=== PATIENT | female | born 1980 | race American Indian/Alaskan Native ===

== ENCOUNTER 2019-03-28 09:34 | Emergency (ER) | payer SELFPAY ==
--- NOTE | 2019-03-28 12:31 | Emergency Department Report ---
ED Chest Pain HPI - General Chief Complaint: Chest Pain Stated Complaint: KNOT ON LEG/CHEST PAIN Time Seen by Provider: 03/28/19 11:59 Source: patient Mode of arrival: Ambulatory Limitations: No Limitations - History of Present Illness Initial Comments: This is a 39-year-old female who presents to ED complaining of left-sided leg pain that radiated up towards to her thighs and also having chest pain. Patient states that she traveled to [place] back to [place] a week ago. Patient states today she noticed the leg pain shortly after returning. Patient's also states that having tingling sensation in her arms and hands fingers. She admits mild chest pain localized to her mid chest region. She denies fall or trauma shortness of breath, headache, - Related Data Previous Rx's Medication Instructions Recorded Last Taken Type Ibuprofen [Motrin 800 MG tab] 800 mg PO TID #30 tablet 03/28/19 Unknown Rx Allergies Allergy/AdvReac Type Severity Reaction Status Date / Time metoclopramide [From Reglan] Allergy Hives Verified 03/27/19 00:18 Heart Score - HEART Score History: Slightly suspicious EKG: Normal Age: < 45 Risk factors: No known risk factors Troponin: < normal limit HEART Score: 0 ED Review of Systems ROS: Stated complaint: KNOT ON LEG/CHEST PAIN Other details as noted in HPI Comment: All other systems reviewed and negative ED Past Medical Hx - Past Medical History Previous Medical History?: Yes Hx GERD: Yes Hx Psychiatric Treatment: Yes (anxiety) Hx Asthma: Yes Additional medical history: Drake's plasey - Surgical History Past Surgical History?: Yes Additional Surgical History: cervix - Social History Smoking Status: Never Smoker Substance Use Type: None - Medications Home Medications: Home Medications Medication Instructions Recorded Confirmed Last Taken Type Ibuprofen [Motrin 800 MG tab] 800 mg PO TID #30 tablet 03/28/19 Unknown Rx ED Physical Exam - General Limitations: No Limitations General appearance: alert, in no apparent distress - Head Head exam: Present: atraumatic, normocephalic - Eye Eye exam: Present: normal appearance Pupils: Present: normal accommodation - ENT ENT exam: Present: mucous membranes moist - Neck Neck exam: Present: normal inspection - Respiratory Respiratory exam: Present: normal lung sounds bilaterally. Absent: respiratory distress, wheezes, chest wall tenderness, accessory muscle use - Cardiovascular Cardiovascular Exam: Present: regular rate, normal rhythm, normal heart sounds. Absent: systolic murmur, diastolic murmur, rubs, gallop - GI/Abdominal GI/Abdominal exam: Present: soft, normal bowel sounds. Absent: distended, tenderness, guarding - Extremities Exam Extremities exam: Present: normal inspection - Back Exam Back exam: Present: normal inspection - Neurological Exam Neurological exam: Present: alert, oriented X3, normal gait - Psychiatric Psychiatric exam: Present: normal affect, normal mood - Skin Skin exam: Present: warm, dry, intact, normal color. Absent: rash ED Course Vital Signs 03/28/19 10:00 Temperature 98.4 F Pulse Rate 83 Respiratory 20 Rate Blood Pressure 136/86 O2 Sat by Pulse 96 Oximetry DANIEL score - Daniel Score Age > 65: (0) No Aspirin use within the Past 7 Days: (0) No 3 or more CAD Risk Factors: (0) No 2 or more Angina events in past 24 hrs: (0) No Known CAD with more than 50% Stenosis: (0) No Elevated Cardiac Markers: (0) No ST Deviation Greater than 0.5mm: (0) No DANIEL Score: 0 ED Medical Decision Making - Lab Data Result diagrams: 03/28/19 12:42 03/28/19 12:42 - Radiology Data Radiology results: report reviewed, image reviewed Fluoro Time In Minutes: ROUTINE CHEST, TWO VIEWS: HISTORY: chest pain. The trachea, heart, mediastinal contour, lung schuster and bony thorax are unremarkable. IMPRESSION: Unremarkable chest x-ray. Transcribed By: TTR Dictated By: RICHY GREY JR, MD Electronically Authenticated By: RICHY GREY JR, MD Signed Date/Time: 03/28/19 4810 - Medical Decision Making 39-year-old female presents with myalgia. Chest x-ray shows no acute process. All labs within normal limits. D-dimer, negative troponin negative Discussed the signs with the patient. Discussed the patient to follow-up with her primary care physician. Patient will be discharged at this time with some pain medication. Vital signs are normal she is in no acute or respiratory distress. Critical care attestation.: If time is entered above; I have spent that time in minutes in the direct care of this critically ill patient, excluding procedure time. ED Disposition Clinical Impression: Myalgia, Costochondritis Disposition: TO HOME OR SELFCARE Is pt being admited?: No Does the pt Need Aspirin: No Condition: Stable Instructions: Musculoskeletal Pain (ED), Trigger Point Pain (ED) Additional Instructions: Make sure to follow up with the primary care physician as discussed. Take all your medications as you've been prescribed. If you have any worsening symptoms or develop new symptoms please return to ED immediately.Discharge Prescriptions: Ibuprofen [Motrin 800 MG tab] 800 mg PO TID #30 tablet Referrals: LISSA METZ MD [Primary Care Provider] - 3-5 Days [facility] [Outside] - 3-5 Days [facility] [Outside] - 3-5 Days Forms: Accompanied Note, Work/School Release Form(ED) Time of Disposition: 15:03
[2019-03-28 12:55] LABS: Eosinophils % (Auto) 0.6 % (0.0-4.3); Hematocrit 36.2 % (30.3-42.9); Hemoglobin 12.2 gm/dl (10.1-14.3); Lymphocytes # (Auto) 1.1 K/mm3 (1.2-5.4); Lymphocytes % (Auto) 37.6 % (13.4-35.0); Mean Corpuscular HGB Conc 34 % (30-34); Mean Corpuscular Volume 90 fl (79-97); Monocytes # (Auto) 0.2 K/mm3 (0.0-0.8); Monocytes % (Auto) 6.9 % (0.0-7.3); Platelet Count 322 K/mm3 (140-440); Red Blood Count 4.01 M/mm3 (3.65-5.03); Red Cell Distribution Width 13.4 % (13.2-15.2)
[2019-03-28 13:17] LABS: BUN/Creatinine Ratio 14; Blood Urea Nitrogen 11 mg/dL (7-17); Calcium 8.8 mg/dL (8.4-10.2); Hemolysis Index 18
--- NOTE | 2019-03-28 13:34 | XRay Report ---
ROUTINE CHEST, TWO VIEWS: HISTORY: chest pain. The trachea, heart, mediastinal contour, lung schuster and bony thorax are unremarkable. IMPRESSION: Unremarkable chest x-ray.
[2019-03-28] MEDS ORDERED: IBUPROFEN PO ONE (14:56)
[2019-03-28 15:36] VITALS: BP 128/72
== END 2019-03-28 15:35 | disposition home or self-care (01) ==
LOC: ED 09:34
DX: M94.0 Chondrocostal junction syndrome [Tietze] (principal); M79.10 Myalgia, unspecified site; K21.9 Gastro-esophageal reflux disease without esophagitis; F41.9 Anxiety disorder, unspecified; J45.909 Unspecified asthma, uncomplicated; G51.0 Bell's palsy; Z88.1 Allergy status to other antibiotic agents
CPT/HCPCS: 36415; 71046; 80048; 84484; 84703; 85025; 85379; 93005; 93010

== ENCOUNTER 2021-01-22 22:31 | Emergency (ER) | payer SELFPAY ==
[2021-01-22 22:52] VITALS: BP 131/86
--- NOTE | 2021-01-22 22:56 | Event Note ---
ED Screening Note Date of service: 01/22/21 Time: 22:54 ED Screening Note: Pt is a 40 y/o aaf who present for chest pain radiating to left arm x 2 days, pt has hx of chronic anemia,HTN, rates symptoms as 4/10 , exacerbated by activity symptoms are relieved by nothing tried. This initial assessment/diagnostic orders/clinical plan/treatment(s) is/are subject to change based on patients health status, clinical progression and re- assessment by fellow clinical providers in the ED. Further treatment and workup at subsequent clinical providers discretion. Patient/guardian urged not to elope from the ED as their condition may be serious if not clinically assessed and managed. Initial orders include: EKG, CXR, Trop, CMP, CBC, UA
[2021-01-23 00:36] LABS: Basophils % (Auto) 0.2 % (0.0-1.8); Eosinophils % (Auto) 0.1 % (0.0-4.3); Hematocrit 35.5 % (30.3-42.9); Hemoglobin 11.9 gm/dl (10.1-14.3); Lymphocytes # (Auto) 1.8 K/mm3 (1.2-5.4); Lymphocytes % (Auto) 17.2 % (13.4-35.0); Mean Corpuscular HGB Conc 34 % (30-34); Mean Corpuscular Volume 89 fl (79-97); Monocytes # (Auto) 0.6 K/mm3 (0.0-0.8); Monocytes % (Auto) 6.1 % (0.0-7.3); Platelet Count 391 K/mm3 (140-440); Red Blood Count 3.97 M/mm3 (3.65-5.03)
[2021-01-23 00:38] LABS: Alanine Aminotransferase 14 units/L (7-56); Albumin 3.9 g/dL (3.9-5); BUN/Creatinine Ratio 20; Blood Urea Nitrogen 16 mg/dL (7-17); Calcium 8.8 mg/dL (8.4-10.2); Hemolysis Index 4
== END 2021-01-23 | disposition left against medical advice (07) ==
LOC: ED 22:31
DX: M79.602 Pain in left arm (principal); Z53.21 Procedure and treatment not carried out due to patient leaving prior to being seen by health care provider
CPT/HCPCS: 36415; 80053; 84484; 85025; 93005

== ENCOUNTER 2021-03-21 09:02 | Outpatient (CLI) | payer MEDICAID ==
--- NOTE | 2021-03-21 10:36 | XRay Report ---
Right knee 2 views INDICATION: Right knee pain IMPRESSION: No fracture or subluxation of the right knee is identified. Tiny right knee effusion. Signer Name: Yared Dang MD Signed: 03/21/2021 10:32 AM Workstation Name: [id number]
--- NOTE | 2021-03-21 10:37 | XRay Report ---
Lumbar spine 5 views INDICATION: Low back pain IMPRESSION: Mild multilevel discogenic and facet arthropathy of the lower lumbar spine particularly a t L5-S1. Signer Name: Yared Dang MD Signed: 03/21/2021 10:32 AM Workstation Name: [id number]
== END 2021-03-21 09:03 | disposition home or self-care (01) ==
LOC: XRAY 09:02
PROVIDERS: ATTEND Orthopaedic Surgery
DX: M51.37 Other intervertebral disc degeneration, lumbosacral region (principal); M47.817 Spondylosis without myelopathy or radiculopathy, lumbosacral region; M25.561 Pain in right knee
CPT/HCPCS: 72110